=== PATIENT | female | born 1955 | race Caucasian/White ===

== ENCOUNTER → 2018-11-09 | Outpatient (CLI) | payer BC ==
--- NOTE | 2018-11-09 14:14 | MR ---
EXAMINATION TYPE: MR knee LT wo con DATE OF EXAM: 11/09/2018 COMPARISON: NONE HISTORY: Pain in left knee, twisted injury knee TECHNIQUE: Multiplanar, multisequence images of the knee is performed without IV contrast. FINDINGS: MEDIAL MENISCUS: Anterior horn is intact without tear. Posterior horn is truncated with diffuse and o blique increased signal extending to inferior articular surface. Medial extrusion medial meniscus not ed coronal image 17 LATERAL MENISCUS: Anterior and posterior horns are intact without tear. CRUCIATE LIGAMENTS: The anterior and posterior cruciate ligaments are intact and unremarkable. COLLATERAL LIGAMENTS: The medial collateral ligament and lateral collateral ligament complex are inta ct. Mild to moderate increased fluid signal surrounds the medial collateral ligament. EXTENSOR MECHANISM: Visualized quadriceps and patellar tendons are intact. EFFUSION: Moderate size suprapatellar joint effusion. POPLITEAL CYST: No popliteal/willis cyst. TRICOMPARTMENT SPACES: Mild to moderate tricompartment joint space loss with mild spurring. CARTILAGE: Some chondromalacia patella with thinning of articular cartilage along posterior patellar pole. There is more prominent cartilaginous loss medial tibial femoral compartment. BONE MARROW SIGNAL: Some areas of T2 hyperintensity distal medial femoral condyle and areas of more f ocal cartilaginous loss coronal image 19 and sagittal image 22 for reference are noted. No ossific fr agmentation is present. OTHER: No additional significant abnormality is appreciated. IMPRESSION: 1. Full-thickness tear posterior horn medial meniscus. 2. Mild MCL sprain injury. 3. Moderate-sized suprapatellar joint effusion. 4. Moderate tricompartment degenerative changes most prominent medial tibial femoral compartment as d etailed above.
== END | disposition home or self-care (01) ==
LOC: RADMRIMAIN 12:40
PROVIDERS: ATTEND Orthopaedic Surgery
DX: S83.242A Other tear of medial meniscus, current injury, left knee, initial encounter (principal); S83.412A Sprain of medial collateral ligament of left knee, initial encounter; M17.12 Unilateral primary osteoarthritis, left knee